=== PATIENT | male | born 1950 | race Caucasian/White ===

== ENCOUNTER → 2017-06-24 | Outpatient (CLI) | payer OTHER ==
[~2017-06-24] MED LIST: ALBUTEROL20 ml; AMLODIPINE BESY10 MG PO; ASPIRIN81 M2 PO; ATORVASTATIN CA80 MG PO; BEN GAY GREA60 GM CR; CARVEDILOL25 MG PO; COUMADIN7.5 MG PO; EFFIENT10 MG PO; FUROSEMIDE40 MG PO; HYDRALAZINE HCL50 MG PO; IMDUR-ER60 M1 PO; KCL PO; LOSARTAN POTASS50 MG PO; NORCO 10/3251 TAB PO; NORCO 7.5-3251 EACH PO; SENNA S TABLET1 TAB PO; SPIRIVA18 MCG INH
[2017-06-24 11:21] LABS: BASOPHIL# 0.1 X10e3 (0-0.3); BASOPHIL% 0.8 % (0-2.5); EOSINOPHIL# 0.3 X10e3 (0-0.7); EOSINOPHIL% 4.4 % (0.0-7.0); HEMATOCRIT 39.4 % (38.0-50.0); HEMOGLOBIN 13.8 gm/dL (13.0-16.0); LYMPHOCYTE# 1.9 X10e3 (1.0-3.5); LYMPHOCYTE% 28.7 % (17.0-45.0); MEAN CELL VOLUME 91.1 FL (83-96); MEAN CORPUSCULAR HGB CONC 35.1 g/dL (30-36); MEAN PLATELET VOLUME 7.6 FL (6.5-11.5); MONOCYTE# 0.5 X10e3 (0-1.0); MONOCYTE% 6.9 % (3.0-12.0); NEUTROPHIL% 59.2 % (40-75); PLATELET COUNT 200 X10e3 (140-420); RED BLOOD COUNT 4.33 X10e (3.90-5.60); RED CELL DISTRIBUTION WIDTH 14.1 % (11.0-15.5); WHITE BLOOD COUNT 6.7 X10e3 (4.0-10.5)
[2017-06-24 11:22] LABS: DIFF IND NO
== END | disposition home or self-care (01) ==
LOC: CLAB 10:41
PROVIDERS: Nurse Practitioner
DX: M25.561 Pain in right knee (principal)
CPT/HCPCS: 36415; 85025; 85652; 86140